=== PATIENT | female | born 1985 | race Hispanic/Latino ===

== ENCOUNTER 2019-03-07 06:15 | Emergency (ER) | payer OTHER, SELFPAY ==
[2019-03-07 06:19] VITALS: BP 101/63; PULSE 82; RESP 18; TEMP 36.6; O2SAT 98; BMI 27.0
--- NOTE | 2019-03-07 06:22 | DI.US.S_ITS ---
PROCEDURE: US OB <= 14 WEEKS FETUS INDICATIONS: CRAMPING, SPOTTING OUTSIDE/PRIOR DATING DATA: Last menstrual period (LMP): 12/12/18. LMP-based estimated date of delivery (GIANCARLO): 09/18/19. First dating scan (date and location): This study, 03/07/19. Estimated date of delivery (GIANCARLO) from first dating scan: 09/17/19. TECHNIQUE: Real-time scanning was performed of the fetus and maternal pelvic organs, with image documentation. Endovaginal scanning was also performed to better visualize the fetus and maternal ovaries. COMPARISON: None. FINDINGS: Embryo: Doran-rump length 5.7 cm correlates with a gestational age estimated at 12 weeks 2 days. Heart rate 147 beats per minute. Maternal cervical length 3.4 cm. Measurement variability in dating: +/- 4 weeks by LMP, +/- 7 days by mean sac diameter (use before 6 weeks gestation if crown-rump length not able to be measured), +/- 5 days by crown-rump length (up to 8 weeks 6 days gestation), +/- 7 days by crown-rump length (up to 13 weeks 6 days gestation). Maternal organs: Ovaries are not seen bilaterally due to bowel gas. Limited images through the kidneys demonstrate no hydronephrosis. IMPRESSION: Single living intrauterine gestation, 5.7 cm crown-rump length, which correlates with a gestational age estimated at 12 weeks 2 days plus or -5 days and followup anatomic survey at approximately 20 weeks gestation is recommended. Dictated by: Justus Jim M.D. on 03/07/2019 at 9:42 Approved by: Justus Jim M.D. on 03/07/2019 at 9:44
--- NOTE | 2019-03-07 06:24 | ED.PREGNANCY ---
HPI - General Chief complaint: Vaginal Bleeding Stated complaint: 13 weeks , has bleeding this morning Time Seen by Provider: 03/07/19 06:19 Source: patient Mode of arrival: ambulatory Limitations: no limitations History of Present Illness HPI Narrative: 33-year-old female nonsmoker at 13 weeks presents with lower abdominal cramping and vaginal spotting over the past day or 2. She is not dizzy nor weak or lightheaded. She denies any fever or chills. She denies provocation or palliation. She denies dysuria, frequency or urgency. She admits to minimal vaginal bleeding, only a small amount of spotting MD Complaint: vaginal bleeding Onset (ago): hour(s) Pain Consistency: intermittent Location: pelvis Severity: mild Quality: Cramping Relieving factors: none Exacerbating factors: none Vaginal discharge: none Vaginal bleeding: light OB History - Current : no complications OB History - Previous Pregnancies: no complications care: none Review of Systems Constitutional Denies chills, Denies fever(s), Denies lethargy and Denies weakness Eyes Denies change in vision, Denies eye discharge, Denies irritation and Denies loss of vision ENT Ears, Nose, Mouth, and Throat: Denies change in voice, Denies neck pain and Denies sore throat Cardiovascular Denies chest pain, Denies irregular heart rhythm, Denies lightheadedness, Denies palpitations, Denies dyspnea, Denies dyspnea on exertion and Denies orthopnea Respiratory Denies cough, Denies dyspnea, Denies dyspnea on exertion and Denies wheezing Gastrointestinal Gastrointestinal: Denies abdominal pain, Denies change in bowel habits, Denies diarrhea, Denies nausea and Denies vomiting Genitourinary Reports abnormal vaginal bleeding, Denies hematuria, Reports pelvic pain, Denies flank pain, Denies urinary incontinence and Denies urinary urgency Musculoskeletal Denies neck pain Integumentary/Breasts Denies pruritus, Denies erythema, Denies rash and Denies wounds Neurologic Denies confusion, Denies loss of vision and Denies weakness Psychiatric Denies anxiety, Denies confusion, Denies depression, Denies homicidal ideation and Denies suicidal ideation Endocrine Denies palpitations Hematologic/Lymphatic Denies easy bruising Allergic/Immunologic Denies wheezing PMFSH - Past Medical History Medical history: Reports non-contributory Surgical history: Reports non-contributory Psychiatric history: Reports no psych history Family history: Reports no significant family history Exam Narrative Exam Narrative: GENERAL: [33] year old patient appears stated age. Well-nourished, well-developed patient, in mild distress. HEAD: Atraumatic. Normocephalic. EYES: Pupils equal round and reactive. Extraocular motions intact. No scleral icterus. No injection or drainage. ENT: Nose without bleeding, purulent drainage. Throat without erythema, tonsillar hypertrophy or exudate. Airway patent. NECK: Trachea midline. Non tender CARDIOVASCULAR: Regular rate and rhythm without murmurs, gallops, or rubs. RESPIRATORY: Clear to auscultation. Breath sounds equal bilaterally. No wheezes, rales, or rhonchi. GASTROINTESTINAL: Abdomen soft, non-tender, nondistended. EXTREMITIES: No edema or joint tenderness. BACK: Nontender without deformity or crepitance. No flank tenderness. NEURO: AOx3. SKIN: No rash or erythema of visible areas Initial Vital Signs Initial Vital Signs: Vital Signs Temperature 97.8 F 03/07/19 06:19 Pulse Rate 82 03/07/19 06:19 Respiratory Rate 18 03/07/19 06:19 Blood Pressure 101/63 03/07/19 06:19 Pulse Oximetry 98 03/07/19 06:19 Course Orders Ordered: ED Orders 03/07/19 06:22 US OB <= 14 weeks fetus Stat 03/07/19 06:29 ABO RH Type Stat Complete Blood Count AUTO DIFF Stat HCG Quantitative Stat Vital Signs - 8 hr 03/07/19 06:19 Temperature 97.8 F Pulse Rate 82 Respiratory Rate 18 Blood Pressure 101/63 Pulse Oximetry 98 MDM - OB/Uterine Contractions Lab Data Result diagrams: 03/07/19 06:29 Lab Results 03/07/19 03/07/19 Range/Units 06:29 06:29 WBC 6.7 (4.5-11.0) X10^3/uL RBC 4.72 (4.0-5.2) X10^6/uL Hgb 13.6 (12.0-16.0) g/dL Hct 39.9 (36-46) % MCV 84.6 (80-100) fL MCH 28.9 (26-34) PG MCHC 34.2 (30-36) % RDW 14.1 (11.6-14.8) % Plt Count 224 (150-400) X10^3/uL Neut % (Auto) 67.1 (50-75) % Lymph % (Auto) 25.2 (25-40) % [place] % (Auto) 5.3 (3-14) % Eos % (Auto) 1.5 L (2-4) % Baso % (Auto) 0.9 (0-2) % Neut # (Auto) 4500 (5121-9864) /uL Lymph # (Auto) 1700 (5602-4103) /uL [place] # (Auto) 400 (0-900) /uL Eos # (Auto) 100 (0-450) /uL Baso # (Auto) 100 (0-100) /uL Blood Type O Positive Discharge Plan Departure Patient Disposition: Home Clinical Impression: Vaginal bleeding Instructions: DI for Vaginal Bleeding During Activity Restrictions/Additional Instructions: *You have been diagnosed with [vaginal bleeding in , normal ultrasound and lab work] *What to do: *Take medications as directed *Follow up with your primary care provider in 2-3 days, call for an appointment. Let them know you were seen in the Emergency Department and that we ask that you be seen in follow up *Return to ER if you should have any new, worsening or concerning symptoms
[2019-03-07 06:38] LABS: Add Manual Diff / Slide Review NO; Basophils Absolute Auto 100 /uL (0-100); Basophils Percent Auto 0.9 % (0-2); Eosinophils Absolute Auto 100 /uL (0-450); Eosinophils Percent Auto 1.5 % (2-4); Hematocrit 39.9 % (36-46); Hemoglobin 13.6 g/dL (12.0-16.0); Lymphocytes Absolute Auto 1700 /uL (1100-4500); Lymphocytes Percent Auto 25.2 % (25-40); Mean Corpuscular HGB Conc 34.2 % (30-36); Mean Corpuscular Hemoglobin 28.9 PG (26-34); Mean Corpuscular Volume 84.6 fL (80-100); Monocytes Absolute Auto 400 /uL (0-900); Monocytes Percent Auto 5.3 % (3-14); Neutrophils Absolute Auto 4500 /uL (1500-7000); Neutrophils Percent Auto 67.1 % (50-75); Platelet Count 224 X10^3/uL (150-400); Red Blood Cell Count 4.72 X10^6/uL (4.0-5.2); Red Cell Distribution Width 14.1 % (11.6-14.8); White Blood Cell Count 6.7 X10^3/uL (4.5-11.0)
[2019-03-07 07:22] VITALS: BP 103/51; PULSE 75; RESP 16; O2SAT 99
[2019-03-07 07:42] LABS: HCG Quantitative /Beta subunit 81954 mIU/mL
== END 2019-03-07 07:23 | disposition home or self-care (01) ==
PROVIDERS: Emergency Provider Emergency Medicine
DX: O20.8 Other hemorrhage in early pregnancy (principal); Z3A.13 13 weeks gestation of pregnancy
CPT/HCPCS: 36415; 76801; 84702; 85025; 86900; 86901; 99282; 99284

== ENCOUNTER → 2019-06-19 10:07 | Outpatient (CLI) | payer OTHER, SELFPAY ==
[2019-06-19 11:50] LABS: Hematocrit 38.4 % (36-46); Hemoglobin 13.1 g/dL (12.0-16.0)
[2019-06-19 12:09] LABS: GTT (PREG) 1 Hour PP 50gm Dose 141 mg/dL (76-139)
== END ==
DX: Z34.82 Encounter for supervision of other normal pregnancy, second trimester (principal)
CPT/HCPCS: 36415; 82950; 85014; 85018

== ENCOUNTER → 2019-07-07 07:48 | Outpatient (CLI) | payer OTHER, SELFPAY ==
[2019-07-07 09:05] LABS: Glucose Fasting 78 mg/dL (70-100)
[2019-07-07 09:43] LABS: Glucose 1 Hour 147 mg/dL (70-170)
[2019-07-07 11:18] LABS: Glucose Tol Interpretation INTERPRETATION
[2019-07-07 12:41] LABS: Glucose 3 Hour 107 mg/dL (70-115)
[2019-07-07 14:31] LABS: Glucose 2 Hour 127 mg/dL (70-140)
== END ==
PROVIDERS: Visit Provider Obstetrics & Gynecology
DX: O99.810 Abnormal glucose complicating pregnancy (principal); Z34.83 Encounter for supervision of other normal pregnancy, third trimester
CPT/HCPCS: 82951; 82952

== ENCOUNTER → 2019-08-11 10:33 | Outpatient (CLI) | payer OTHER, SELFPAY ==
[2019-08-12 14:28] LABS: Strep Grp B PCR NEG for Grp B Strep
== END ==
DX: Z34.83 Encounter for supervision of other normal pregnancy, third trimester (principal); Z3A.35 35 weeks gestation of pregnancy
CPT/HCPCS: 87653

== ENCOUNTER → 2019-08-18 10:22 | Outpatient (CLI) | payer OTHER, SELFPAY ==
[2019-08-18 10:45] LABS: Hematocrit 36.3 % (36-46); Hemoglobin 12.3 g/dL (12.0-16.0)
== END ==
PROVIDERS: Visit Provider Obstetrics & Gynecology
DX: Z34.83 Encounter for supervision of other normal pregnancy, third trimester (principal)
CPT/HCPCS: 36415; 85014; 85018

== ENCOUNTER 2019-09-16 04:25 | Inpatient (IN) | payer OTHER, SELFPAY ==
--- NOTE | 2019-09-16 05:34 | P.HPOB_ITS ---
OB HPI Date/Time Date of admission: 09/16/19 Date Patient Seen: 09/16/19 Time Patient Seen: 05:34 History of Present Condition Chief complaint: LABOR : 4 Para: 3 Estimated Date of Delivery: 09/14/19 Estimated Gestational Age (weeks): 40 Narrative: Isadora Sawant is a 34 year old 003 at 40 weeks 2 days presenting in active labor. Patient reports that her contractions began 5 hours ago, no vaginal bleeding, no loss of fluid, good movement, no other complaints. The patient is at and otherwise uncomplicated with good care, the her initial labs appear to be incomplete. She has a history of three uncomplicated vaginal deliveries, and is proven to 6 something. She denies contributory medical or surgical history. History of Present care: good care, initiated at week # (5) and pounds weight gain (18) Dating criteria: based on 1st trimester US only Ultrasounds: normal 1st trimester US and normal mid trimester US Obstetrical complications: none Medical complications: none Preadmission Labs Blood type: O (+) positive -: Antibody screen: positive (unclear etiology- no ab screen visible in [place]), GBS status: negative, HBsAG: negative, HIV: negative and RPR/VDLR: negative -: Chlamydia screen: not detected and Gonorrhea screen: not detected -: Rubella: immune and Varicella: immune Urine: negative Prior (ies) History: G1: , T, 6#, uncomplicated G2: , T, 6#, uncomplicated G3: , T, 6#, uncomplicated Evaluation Evaluation Baseline heart rate: 150 Variability: Average (6-10) monitor accelerations: Present monitor decelerations: Absent Category of Tracing: I Cervical dilation (cm): 8 Cervical effacement (%): 100 station: 0 Comments: AROM for clear fluid, GRANT presentation PFSH Family History Father Diabetes mellitus Social History Smoking Status: Never smoker Meds Home Medications and Allergies Home Medications Medication Instructions Recorded Confirmed Type ondansetron 4 mg disintegrating 4 mg PO Q6H PRN #20 tab 06/23/19 Rx tablet omeprazole 20 mg capsule,delayed 20 mg PO DAILY #90 cap 07/28/19 Rx release Double Electric breast Pump and #1 each 08/25/19 Rx Supplies Allergies Allergy/AdvReac Type Severity Reaction Status Date / Time No Known Drug Allergies Allergy Verified 09/16/19 06:32 Review of Systems Constitutional Constitutional: Reports system reviewed and no additional complaints, except as documented Cardiovascular Cardiovascular: Reports system reviewed; no additional complaints, except as documented Respiratory Respiratory: Reports system reviewed and no additional complaints, except as documented Gastrointestinal Gastrointestinal: Reports system reviewed and no additional complaints, except as documented Genitourinary Genitourinary: Reports system reviewed and no additional complaints, except as documented Neurologic Neurologic: Reports system reviewed and no additional complaints, except as d ocumented Exam Vital Signs (past 8 hours): 116/74, HR 85 Const General: cooperative, healthy appearing and other (laboring) GI Palpation: soft and No tender External Female Exam: external appearance normal Other: bloody show Assessment and Plan Assessment and Plan Assessment and Plan narrative: This patient is in active labor, and will be admitted per the usual protocol. Time Spent with Patient Total time spent with greater than 50% in coordination of care (as documented) at patient's floor/unit and/or counseling patient:: 25 - 35 minutes
[2019-09-16 05:46] LABS: Add Manual Diff / Slide Review NO; Basophils Absolute Auto 100 /uL (0-100); Basophils Percent Auto 0.6 % (0-2); Eosinophils Absolute Auto 100 /uL (0-450); Eosinophils Percent Auto 0.5 % (2-4); Hemoglobin 12.7 g/dL (12.0-16.0); Lymphocytes Absolute Auto 1500 /uL (1100-4500); Lymphocytes Percent Auto 13.9 % (25-40); Mean Corpuscular HGB Conc 33.5 % (30-36); Mean Corpuscular Hemoglobin 26.5 PG (26-34); Mean Corpuscular Volume 79.2 fL (80-100); Monocytes Absolute Auto 600 /uL (0-900); Monocytes Percent Auto 5.3 % (3-14); Neutrophils Absolute Auto 8400 /uL (1500-7000); Neutrophils Percent Auto 79.7 % (50-75); Platelet Count 288 X10^3/uL (150-400); Red Cell Distribution Width 16.8 % (11.6-14.8); White Blood Cell Count 10.5 X10^3/uL (4.5-11.0)
[2019-09-16 05:55] VITALS: BP 116/76
--- NOTE | 2019-09-16 06:53 | PM.OBPRVD ---
Labor & Delivery Delivery date: 09/16/19 Intrapartal events: None Delivery augmentation: rupture of membranes Delivery monitor: external FHT and external uterine Route of delivery: L&D Laceration Description: None Estimated blood loss (mL): 150 Anesthesia type: None Narrative: This patient presented in active labor with her 4th baby, and after AROM for clear fluid, progressed to fully dilated. She pushed for 2 pushes and was delivered of a healthy baby girl, Apgars 9+9, over an intact perineum. After the cord stopped pulsating, the cord was clamped and cut. Placenta spontaneously delivered shortly thereafter with no complications. Perineum was intact, bleeding was minimal, and the patient was administered 20 milliunits of Pitocin in IV fluids. There were no intrapartum or immediate complications. Baby 1: Infant gender: Female Presentation: vertex position: Right Occiput Anterior Placenta delivery description: Spontaneous cord vessel description: 3 Vessels score (1 min): 9 score (5 min): 9 Narrative: Baby doing well, attempting to nurse. Plan for aftercare: Routine care.
[2019-09-16 14:41] LABS: Hematocrit 36.2 % (36-46)
[2019-09-16] MEDS: PRENATAL VIT,CALC/IRON/FOLIC 1 TABLET 1 TAB PO (15:05)
[2019-09-16] MEDS: IBUPROFEN 400 MG TABLET 800 MG PO (15:05)
--- NOTE | 2019-09-16 17:27 | P.DS_ITS ---
Discharge Providers Provider Date of admission: 09/16/19 04:25 Discharge Date: 09/17/19 Consults: 09/17/19 06:39 Consult to Operations Vocational Instructor Routine Comment: Discharge provider: Ankita Guzman MD Summary Hospital Course Date Patient Seen: 09/17/19 Time Patient Seen: 08:27 Procedures: Spontaneous vaginal delivery Hospital Course: This patient is a 34-year-old now para 4 who presented in active labor, progressed unaugmented, was ruptured for clear fluid at 8.5 cm, and delivered a healthy baby girl over an intact perineum. There were no intrapartum or complications, the patient was discharged with precautions on day 1. Peripartum Data Delivery Method: Natural Vaginal Laceration description: None complications: none 1: Gender: Female Disposition of : home Discharge Diagnosis (1) Vaginal delivery: Status: Acute Status at Discharge Cognitive/behavioral status at discharge: oriented Functional status at discharge: independent ambulation Overall status at discharge: patient is progressing back to baseline Time Spent with Patient Time attestation: Total time spent providing and/or coordinating discharge services: Time spent: Greater than 30 minutes Specific discharge activities: Nothing in the vagina for 6 weeks. Avoid heavy lifting for 6 weeks. Objective Labs Result Diagrams: 09/16/19 14:28 Labs: Laboratory Results - last 24 hr 09/16/19 09/16/19 09/16/19 05:30 05:30 14:28 WBC 10.5 RBC 4.80 Hgb 12.7 12.0 Hct 38.0 36.2 MCV 79.2 L MCH 26.5 MCHC 33.5 RDW 16.8 H Plt Count 288 Neut % (Auto) 79.7 H Lymph % (Auto) 13.9 L [place] % (Auto) 5.3 Eos % (Auto) 0.5 L Baso % (Auto) 0.6 Neut # (Auto) 8400 H Lymph # (Auto) 1500 [place] # (Auto) 600 Eos # (Auto) 100 Baso # (Auto) 100 Blood Type O Positive Antibody Screen Negative Antibody Identification Miscellaneous Ashley Exam Vital Signs (past 8 hours): CC day of discharge progress note. Discharge Plan Discharge Plan Patient Disposition: Home Discharge orders & Medications Prescriptions: New ibuprofen 600 mg tablet 600 mg PO Q8H PRN (Reason: pain) Qty: 20 RF: 0 Continued (DME) Double Electric breast Pump and Supplies See Rx Instructions .ROUTE .MEDSUPPLY Qty: 1 RF: 0 Discontinued ondansetron 4 mg tablet,disintegrating 4 mg PO Q6H PRN (Reason: nausea and vomiting) Qty: 20 RF: 1 omeprazole 20 mg capsule,delayed release(DR/EC) 20 mg PO DAILY Qty: 90 RF: 3 Follow up/Referrals: Suleman Pena MD [Physician] - 6 Weeks Diet/Activity/Treatments Diet: Regular Activity: Nothing in the vagina for 6 weeks. Avoid heavy lifting for 6 weeks. If he a suddenly increased bleeding, fevers, chills, nausea, vomiting, or any other symptoms or concerns, call or come to the emergency room. Skin/Wound/Dressing Care Report to your healthcare provider any signs of infection, such as:: chills, fever, night sweats, increased pain, unusual drainage and unusual redness Visit Report/Discharge Packet Instructions: DI for Labor and Delivery, Vaginal Discharge Data Attending Provider: Suleman Pena Admit Date/Time: 09/16/19 04:25
[2019-09-17] MEDS: IBUPROFEN 400 MG TABLET 800 MG PO ×2 (02:29→09:29)
--- NOTE | 2019-09-17 08:23 | PM.OBPN.1 ---
Subjective - OB Subjective Patient comments: no complaints and pain well controlled baby status: doing well feeding status: exclusively breast feeding Narrative: This patient is a 34-year-old now para 4 day 1 status post an uncomplicated vaginal delivery. The patient reports feeling well today, with mild to moderate lochia, well controlled cramping with Motrin, ambulating well, no problems with bowel or bladder habits, and no other complaints obstetrical or otherwise. Baby is doing well, breast-feeding. Date Patient Seen: 09/17/19 Time Patient Seen: 08:23 Exam Vital Signs (past 8 hours): 111/58, HR 81 Const General: cooperative, healthy appearing and comfortable Resp Effort & Inspection: normal respiratory effort Auscultation: clear to auscultation bilaterally Cardio Rate: regular rate Rhythm: regular rhythm GI Palpation: soft and No tender Other: Fundus firm, well below U Skin General: no rashes or lesions noted Objective Labs Result Diagrams: 09/16/19 14:28 Labs: Laboratory Results - last 24 hr 09/16/19 09/16/19 05:30 14:28 Hgb 12.0 Hct 36.2 Antibody Screen Negative Antibody Identification Miscellaneous Ashley Assessment & Plan Plan day: 1 plan OB: discharge home Comments: This patient is doing well, meeting goals. precautions were discussed, the patient and her partner vocalized understanding. All questions were answered. Patient encouraged to call or come in with any concerns. Time Spent With Patient Time: Total time spent is greater than 50% in coordination of care (as documented) at patient's floor/unit and/or counseling patient: Time with patient: 15-24 minutes
[2019-09-17] MEDS: PRENATAL VIT,CALC/IRON/FOLIC 1 TABLET 1 TAB PO (09:29)
[2019-09-17 10:14] VITALS: BP 98/63; PULSE 79; RESP 16; TEMP 36.6
== END 2019-09-17 11:50 | disposition home or self-care (01) | DRG 807 ==
PROVIDERS: Obstetrics & Gynecology
DX: O80 Encounter for full-term uncomplicated delivery (principal); Z37.0 Single live birth; Z3A.40 40 weeks gestation of pregnancy
CPT/HCPCS: 36415; 59050; 59410; 85014; 85018; 85025; 86850; 86870; 86900; 86901; G0379

== ENCOUNTER 2020-07-11 17:10 | Emergency (ER) | payer OTHER, SELFPAY ==
[2020-07-11 17:32] VITALS: BP 128/55; PULSE 70; RESP 16; TEMP 36.8; O2SAT 100; BMI 27.7
--- NOTE | 2020-07-11 19:45 | PC.NURSE ---
Pt states that she has developed pain and swelling around her R nipple. Pt is breast feeding. No discharge from the nipple reported. No obvious redness noted. Afebrile.
[2020-07-11 21:18] VITALS: BP 120/72; PULSE 70; RESP 18; O2SAT 96
--- NOTE | 2020-07-11 21:46 | ED_ITS ---
HPI - Skin/Abscess/Foreign Bdy General Chief complaint: Skin/Abscess/Foreign Body Stated complaint: Rt Breast Pain, Breast Feeding Time Seen by Provider: 07/11/20 17:25 Source: patient and family Mode of arrival: Ambulatory History of Present Illness HPI narrative: Patient here with . Patient has been breast-feeding for the past 9 months. Pain in the right breast for the past 2 weeks. Continues to breast pump. No discharge otherwise. No fever. Has had redness and tenderness to the areola. No previous mastitis. Related Data Previous Rx's Medication Instructions Recorded Double Electric breast Pump and #1 each 08/25/19 Supplies ibuprofen 600 mg tablet 600 mg PO Q8H PRN #20 tab 10/09/19 norethindrone (contraceptive) 0.35 0.35 mg PO DAILY #28 tab 10/13/19 mg tablet cephalexin [Keflex] 500 mg PO QID #40 cap 07/11/20 Allergies Allergy/AdvReac Type Severity Reaction Status Date / Time No Known Drug Allergies Allergy Verified 07/11/20 17:39 Review of Systems Review of Systems Narrative: GENERAL: Denies chills, fatigue, malaise, fever, sweats. HEENT: Denies sinus pain, ear pain, sore throat, difficulty swallowing RESPIRATORY: Denies dyspnea, cough CARDIOVASCULAR: Denies chest pain, palpitations, edema, GASTROINTESTINAL: Denies nausea, vomiting, abdominal pain, diarrhea, constipation, melena. : Denies dysuria, frequency, hematuria MUSCULOSKELETAL: denies muscle or bony pain SKIN: Denies rash, skin lesions, complains of erythema of the breast NEUROLOGIC: Denies weakness, headache, numbness, change in speech, confusion PSYCHIATRIC: No SI or HI or hallucinations ROS Unobtainable: All systems reviewed & are unremarkable except as noted in HPI and below Patient History Family History Father Diabetes mellitus Social History Smoking Status: Never smoker Smoking Status: Never smoker Substance Use Type: does not use Exam Narrative Exam Narrative: GENERAL: patient appears stated age. Well-nourished, well- developed patient, in no distress, not toxic not dyspneic HEAD: Normocephalic. EYES: Pupils equal round and reactive. No scleral icterus. No injection no discharge NECK: Trachea midline. Non tender NEURO: AOx4. SKIN: female nurse present for exam, [place], breasts are grossly symmetric. On the right breast there is tenderness at the areola. Milky discharge present. No pus. Tender to touch. No expanding erythema outside of the areola tissue border PSYCH: Not anxious, is cooperative Initial Vital Signs Initial Vital Signs: Vital Signs Temperature 98.2 F 07/11/20 17:32 Pulse Rate 70 07/11/20 17:32 Respiratory Rate 16 07/11/20 17:32 Blood Pressure 128/55 L 07/11/20 17:32 Pulse Oximetry 100 07/11/20 17:32 Course Orders Ordered: Discontinued Medications Cephalexin HCl (Cephalexin 250 Mg Capsule) 500 mg PO NOW ONE Stop: 07/11/20 21:46 Last Admin: 07/11/20 21:51 Dose: 500 mg Documented by: PREETI Reevaluation(s) Reevaluation #1: Patient and agree with treatment plan. No labs indicated. No fever. Vital Signs Vital signs: Vital Signs - 8 hr 07/11/20 21:18 Pulse Rate 70 Respiratory Rate 18 Blood Pressure 120/72 Pulse Oximetry 96 MDM - Skin/Abscess/Foreign Bdy Differential Diagnosis Differential diagnosis: Likely other (Mastitis) MDM Narrative Medical decision making narrative: Appropriate for discharge home. No labs indicated. Clinically mastitis. No fever. Normal vital signs. No imaging indicated this time. Discharge Plan Departure Patient Disposition: Home Clinical Impression: Mastitis Instructions: DI for Mastitis Activity Restrictions/Additional Instructions: Continue pumping for breast milk. However keep baby on formula until completion of antibiotics. Antibiotics will be taken for 10 days. See family doctor at the [employer] next week for recheck. Return if worse if any questions or concerns. Prescriptions: New cephalexin [Keflex] 500 mg capsule 500 mg PO QID Qty: 40 RF: 0 No Action (DME) Double Electric breast Pump and Supplies See Rx Instructions .ROUTE .MEDSUPPLY Qty: 1 RF: 0 ibuprofen 600 mg tablet 600 mg PO Q8H PRN (Reason: pain) Qty: 20 RF: 0 norethindrone (contraceptive) 0.35 mg tablet 0.35 mg PO DAILY Qty: 28 RF: 5
[2020-07-11] MEDS: cephALEXin 250 MG CAPSULE 500 MG PO (21:51)
== END 2020-07-11 21:55 | disposition home or self-care (01) ==
PROVIDERS: Emergency Provider Emergency Medicine
DX: N61.0 Mastitis without abscess (principal)
CPT/HCPCS: 99281; 99283

== ENCOUNTER 2021-08-01 22:26 | Emergency (ER) | payer OTHER, SELFPAY ==
[2021-08-01 22:32] VITALS: BP 129/85; PULSE 78; RESP 16; TEMP 37.1; O2SAT 99; BMI 29.2
[2021-08-01 22:55] VITALS: BP 114/70
[2021-08-01 22:56] VITALS: PULSE 75; O2SAT 99
[2021-08-01 23:00] VITALS: BP 107/66; PULSE 74; RESP 20; O2SAT 98
[2021-08-01 23:02] LABS: COVID19 -Nasal RAPID POSITIVE (Negative)
[2021-08-01 23:30] VITALS: BP 111/68; PULSE 71; RESP 21; O2SAT 97
--- NOTE | 2021-08-01 23:49 | ED_ITS ---
HPI - URI/Sore Throat General Chief Complaint: Upper Respiratory Symptoms Stated Complaint: chest pain, sore throat, headache, covid exposure Time Seen by Provider: 08/01/21 23:48 Source: patient Mode of arrival: Ambulatory History of Present Illness HPI Narrative: Patient is a 36-year-old healthy female who presents with cough chest pain sore throat and body aches. She received her booster vaccine 1 week ago. They are scheduled to go to [place] tomorrow. He states her chest hurts every time she coughs and agrees. Throat also is bothering her. Initially 1 of her children tested positive for COVID. Related Data Previous Rx's Medication Instructions Recorded Double Electric breast Pump and #1 each 08/25/19 Supplies ibuprofen 600 mg tablet 600 mg PO Q8H PRN #20 tab 10/09/19 norethindrone (contraceptive) 0.35 0.35 mg PO DAILY #28 tab 10/13/19 mg tablet cephalexin 500 mg capsule (Keflex) 500 mg PO QID #40 cap 07/11/20 Allergies Allergy/AdvReac Type Severity Reaction Status Date / Time No Known Drug Allergies Allergy Verified 07/11/20 17:39 Review of Systems Review of Systems Narrative: GENERAL: Denies chills, fatigue, malaise, fever, sweats, travel HEENT: See HPI, sore throat RESPIRATORY: Denies dyspnea, cough, wheezing, hemoptysis, sputum. CARDIOVASCULAR: See HPI GASTROINTESTINAL: Denies nausea, vomiting, abdominal pain, diarrhea, constipation, melena. : Denies dysuria, frequency, incontinence, hematuria, urinary retention, flank pain. MUSCULOSKELETAL: Denies weakness, joint pain, or bony pain SKIN: No rash, no erythema, no pruritus NEUROLOGIC: Denies weakness, dizziness, headache, numbness, change in speech, confusion PSYCHIATRIC: No concerning psychosocial issues. 12 point review of systems is negative except for those stated above and HPI Patient History Family History Father Diabetes mellitus Social History Smoking Status: Never smoker Smoking Status: Never smoker Substance Use Type: does not use Exam Initial Vital Signs Initial Vital Signs: Vital Signs Temperature 98.8 F 08/01/21 22:32 Pulse Rate 78 08/01/21 22:32 Respiratory Rate 16 08/01/21 22:32 Blood Pressure 129/85 08/01/21 22:32 Pulse Oximetry 99 08/01/21 22:32 GENERAL: Well-appearing, well-nourished and in no acute distress. HEENT: Head atraumatic,EOMI, pupils reactive, face symmetric, moist mucous membranes CARDIOVASCULAR: Regular rate and rhythm without murmurs, rubs or gallops. RESPIRATORY: Breath sounds equal bilaterally, no wheezes rales or rhonchi. ABDOMEN: Soft, nontender. Normoactive bowel sounds all 4 quadrants. No guarding or rebound. EXTREMITIES: Normal range of motion, no clubbing or edema. Neurovascularly intact NEUROLOGICAL: Alert and oriented x4.Normal gait and speech. SKIN: Warm, dry, no laceration, no petechiae, no rashes or lesions. Course Orders Ordered: ED Orders 08/01/21 22:36 EKG-12 Lead Stat 08/01/21 22:40 COVID19 -Nasal swab/Pre-Proc Stat Discontinued Medications Acetaminophen (Acetaminophen 325 Mg Tablet) 975 mg PO NOW ONE Stop: 08/02/21 00:04 Last Admin: 08/02/21 00:32 Dose: 975 mg Documented by: LENO Vital Signs Vital signs: Vital Signs - 8 hr 08/01/21 22:32 08/01/21 22:55 08/01/21 22:56 Temperature 98.8 F Pulse Rate 78 75 Respiratory Rate 16 Blood Pressure 129/85 114/70 Pulse Oximetry 99 99 08/01/21 23:00 08/01/21 23:30 08/02/21 00:00 Temperature Pulse Rate 74 71 72 Respiratory Rate 20 21 23 Blood Pressure 107/66 111/68 114/65 Pulse Oximetry 98 97 98 MDM - URI/Sore Throat Lab Data Labs: Lab Results 08/01/21 Range/Units 22:40 SARS-CoV-2 (PCR) Positive H (Negative) ECG Data Interpretation: Normal sinus rhythm rate 73, VT 158, QRS [address] changes or T-wave inversions Discharge Plan Departure Patient Disposition: Home Clinical Impression: COVID-19 Instructions: DI for COVID-19 (Suspected or Confirmed ) Activity Restrictions/Additional Instructions: *You have been diagnosed with covid *What to do: At this time expect that he will do well. Symptoms lasts sign to 10 days. He may monitor your oxygen home. If oxygen is 90% or below return to emergency department. Recommend hydration and pain control *Continue to take medications as directed Tylenol 1000 mg every 6 hours if needed Motrin 800 mg every 8 hours if needed *Follow up with your primary care provider in 2-3 days or call [phone] *Return to ER if you should have decreased oxygen, inability to swallow or any new, worsening or concerning symptoms Prescriptions: No Action (DME) Double Electric breast Pump and Supplies See Rx Instructions .ROUTE .MEDSUPPLY Qty: 1 0RF Rx Instructions: As directed for 99 months. ibuprofen 600 mg tablet 600 mg PO Q8H PRN (Reason: pain) Qty: 20 0RF norethindrone (contraceptive) 0.35 mg tablet 0.35 mg PO DAILY Qty: 28 5RF Rx Instructions: Take at same time daily, no breaks. Use alternate form of protection for first two weeks. cephalexin [Keflex] 500 mg capsule 500 mg PO QID Qty: 40 0RF
[2021-08-02] VITALS: BP 114/65; PULSE 72; RESP 23; O2SAT 98
[2021-08-02] MEDS: ACETAMINOPHEN 325 MG TABLET 975 MG PO (00:32)
== END 2021-08-02 00:39 | disposition home or self-care (01) ==
PROVIDERS: Emergency Provider Emergency Medicine
DX: U07.1 COVID-19 (principal); R07.9 Chest pain, unspecified
CPT/HCPCS: 87635; 93005; 93010; 99283; C9803